=== PATIENT | male | born 1970 | race African-American/Black ===

== ENCOUNTER 2023-06-18 17:05 | Inpatient (IN) | payer OTHER ==
[2023-06-18 18:53] VITALS: BMI 21.9
[2023-06-18] MEDS ORDERED: LOPERAMIDE HCL 2 MG CAPSULE PO PRN (23:04)
[2023-06-18] MEDS ORDERED: ONDANSETRON *ODT* 4 MG TABLET SL PRN (23:04)
[2023-06-18] MEDS ORDERED: IBUPROFEN 400 MG TABLET (FP) PO PRN (23:04)
[2023-06-18] MEDS ORDERED: guaiFENesin 600 MG TABLET.ER (FP) PO PRN (23:04)
[2023-06-18] MEDS ORDERED: DICYCLOMINE HCL 10 MG CAPSULE PO PRN (23:04)
[2023-06-18] MEDS ORDERED: BENZONATATE 200 MG CAPSULE PO PRN (23:04)
[2023-06-18] MEDS ORDERED: hydrOXYzine PAMOATE 25 MG CAPSULE (FP) PO PRN (23:04)
[2023-06-18] MEDS ORDERED: BENZOCAINE/MENTHOL (CHLORASEPTIC ) LOZENGE MM PRN (23:04)
[2023-06-18] MEDS ORDERED: P-EPHED 60MG/TRIPROLIDI 2.5MG TABLET PO PRN (23:04)
[2023-06-18] MEDS ORDERED: MAG HYDROX/AL HYDROX/SIMETH 30 ML UNIT-DOSE CUP PO PRN (23:04)
[2023-06-18] MEDS ORDERED: BISMUTH SUBSALICYLATE 524 MG/30 ML PO PRN (23:04)
[2023-06-18] MEDS ORDERED: POLYETHYLENE GLYCOL (HEALTHYLAX) 3350 17 GM PACKET PO PRN (23:04)
[2023-06-18] MEDS ORDERED: MAGNESIUM HYDROX 2400MG/30ML ORAL SUSPENSION 30 ML CUP PO PRN (23:04)
[2023-06-19] MEDS: PRENATAL VITAMINS W/ FOLIC ACID TABLET (FP) PO SCH (09:42)
[2023-06-19] MEDS ORDERED: diazePAM 5 MG TABLET PO PRN (10:07)
[2023-06-19] MEDS: diazePAM 5 MG TABLET PO SCH ×3 (10:30→22:12)
[2023-06-19] MEDS: LISINOPRIL 20 MG TABLET PO SCH (10:30)
[2023-06-19 10:47] LABS: HEMATOCRIT 39.9 % (35.4-49); HEMOGLOBIN 13.6 GM/dL (11.7-16.9); MEAN CELL VOLUME 91.3 fl (80-96); MEAN PLT VOLUME 8.3 fl (7.5-11.1); PLATELET COUNT 189 10^3/uL (134-434); RBC 4.37 M/mm3 (4.00-5.60); RDW 16.1 % (11.9-15.9); WHITE BLOOD COUNT 4.7 K/mm3 (4.0-10.0)
[2023-06-19 11:30] LABS: POTASSIUM 4.2 mmol/L (3.5-5.1)
[2023-06-19 11:34] LABS: CALCIUM 8.7 mg/dL (8.5-10.1)
[2023-06-19 11:35] LABS: ALBUMIN 3.4 g/dl (3.4-5.0)
[2023-06-19 11:38] LABS: CREATININE 0.9 mg/dL (0.55-1.3)
[2023-06-19 11:39] LABS: TOT PROT 6.3 g/dl (6.4-8.2)
[2023-06-19] MEDS: MELATONIN 5 MG TABLETS PO SCH (22:11)
[2023-06-19] MEDS: QUEtiapine FUMARATE 100 MG TABLET (FP) PO SCH (22:11)
[2023-06-19] MEDS: THIAMINE HCL 100 MG TABLET (FP) PO SCH (22:11)
[2023-06-19] MEDS: METHOCARBAMOL 500 MG TABLET PO PRN (22:11)
[2023-06-20] MEDS: diazePAM 5 MG TABLET PO SCH ×4 (05:49→22:48)
[2023-06-20] MEDS: ACETAMINOPHEN 325 MG TABLET (FP) PO PRN (09:38)
[2023-06-20] MEDS: LISINOPRIL 20 MG TABLET PO SCH (09:38)
[2023-06-20] MEDS: PRENATAL VITAMINS W/ FOLIC ACID TABLET (FP) PO SCH (09:38)
[2023-06-20] MEDS: IBUPROFEN 600 MG TABLET (FP) PO PRN (17:49)
[2023-06-20] MEDS: THIAMINE HCL 100 MG TABLET (FP) PO SCH (22:48)
[2023-06-20] MEDS: QUEtiapine FUMARATE 100 MG TABLET (FP) PO SCH (22:48)
[2023-06-20] MEDS: MELATONIN 5 MG TABLETS PO SCH (22:48)
[2023-06-20] MEDS: METHOCARBAMOL 500 MG TABLET PO PRN (22:48)
[2023-06-21] MEDS: diazePAM 5 MG TABLET PO SCH ×3 (05:47→22:49)
[2023-06-21] MEDS: ACETAMINOPHEN 325 MG TABLET (FP) PO PRN ×2 (05:47→18:00)
[2023-06-21] MEDS: METHOCARBAMOL 500 MG TABLET PO PRN ×2 (09:15→22:48)
[2023-06-21] MEDS: LISINOPRIL 20 MG TABLET PO SCH (09:15)
[2023-06-21] MEDS: PRENATAL VITAMINS W/ FOLIC ACID TABLET (FP) PO SCH (09:17)
[2023-06-21] MEDS: QUEtiapine FUMARATE 100 MG TABLET (FP) PO SCH (22:48)
[2023-06-21] MEDS: THIAMINE HCL 100 MG TABLET (FP) PO SCH (22:48)
[2023-06-21] MEDS: MELATONIN 5 MG TABLETS PO SCH (22:48)
[2023-06-22] MEDS: diazePAM 5 MG TABLET PO SCH ×2 (06:20→17:20)
[2023-06-22] MEDS: PRENATAL VITAMINS W/ FOLIC ACID TABLET (FP) PO SCH (10:30)
[2023-06-22] MEDS: LISINOPRIL 20 MG TABLET PO SCH (10:31)
[2023-06-22] MEDS: IBUPROFEN 600 MG TABLET (FP) PO PRN (17:21)
[2023-06-22] MEDS: THIAMINE HCL 100 MG TABLET (FP) PO SCH (23:00)
[2023-06-22] MEDS: MELATONIN 5 MG TABLETS PO SCH (23:00)
[2023-06-22] MEDS: QUEtiapine FUMARATE 100 MG TABLET (FP) PO SCH (23:00)
[2023-06-23] MEDS ORDERED: diazePAM 5 MG TABLET PO ONE (06:00)
[2023-06-23] MEDS: PRENATAL VITAMINS W/ FOLIC ACID TABLET (FP) PO SCH (09:52)
[2023-06-23] MEDS: LISINOPRIL 20 MG TABLET PO SCH (09:52)
[2023-06-23] MEDS: METHOCARBAMOL 500 MG TABLET PO PRN (18:23)
[2023-06-23] MEDS: ACETAMINOPHEN 325 MG TABLET (FP) PO PRN (23:08)
[2023-06-23] MEDS: MELATONIN 5 MG TABLETS PO SCH (23:08)
[2023-06-23] MEDS: THIAMINE HCL 100 MG TABLET (FP) PO SCH (23:08)
[2023-06-23] MEDS: QUEtiapine FUMARATE 100 MG TABLET (FP) PO SCH (23:08)
[2023-06-24] MEDS: PRENATAL VITAMINS W/ FOLIC ACID TABLET (FP) PO SCH (09:41)
[2023-06-24] MEDS: LISINOPRIL 20 MG TABLET PO SCH (09:41)
[2023-06-24 13:34] VITALS: BP 114/74; PULSE 79; RESP 18; TEMP 98.6
== END 2023-06-24 15:53 | disposition home or self-care (01) | DRG 774 ==
LOC: YASAS 17:05 → Y3N 22:28
PROVIDERS: ADMIT Allergy & Immunology; ATTEND Surgery
PROC: HZ2ZZZZ Detoxification Services for Substance Abuse Treatment (ICD-10-PCS; principal; 2023-06-18)
DX: F10.230 Alcohol dependence with withdrawal, uncomplicated (principal); F14.20 Cocaine dependence, uncomplicated; F17.210 Nicotine dependence, cigarettes, uncomplicated; F41.9 Anxiety disorder, unspecified; F32.A Depression, unspecified; U07.1 COVID-19; I10 Essential (primary) hypertension; M54.50 Low back pain, unspecified; G89.29 Other chronic pain; Z56.0 Unemployment, unspecified; Z59.02 Unsheltered homelessness
CPT/HCPCS: 36415; 80053; 85027; 86780; 87635